=== PATIENT | male | born 1955 | race American Indian/Alaskan Native ===

== ENCOUNTER 2021-11-23 05:34 | Day surgery (SDC) | payer MEDICARE ==
[2021-11-21 13:02] LABS: Hematocrit 45.1 % (35.5-45.6); Mean Corpuscular HGB Conc 33 % (32-34); Mean Corpuscular Volume 105 fl (84-94); Platelet Count 229 K/mm3 (140-440); Red Blood Count 4.31 M/mm3 (3.65-5.03); Red Cell Distribution Width 13.4 % (13.2-15.2)
[2021-11-21 13:29] LABS: Alanine Aminotransferase 19 units/L (7-56); Albumin 4.5 g/dL (3.9-5); Blood Urea Nitrogen 9 mg/dL (9-20); Calcium 9.5 mg/dL (8.4-10.2); Hemolysis Index 3
[2021-11-21 13:42] LABS: BUN/Creatinine Ratio 13
[2021-11-23] MEDS ORDERED: MIDAZOLAM 2 MG/2 ML INJ IV SCH (06:00)
[2021-11-23] MEDS ORDERED: ACETAMINOPHEN 500 MG TAB PO SCH (06:00)
[2021-11-23] MEDS ORDERED: LACTATED RINGERS 1,000 ML IV SCH (06:00)
[2021-11-23] MEDS ORDERED: ceFAZolin/STERILE WATER 2 GM/20 ML SYRINGE IV NR (06:30)
--- NOTE | 2021-11-23 06:44 | Anesthesia Consultation ---
Anesthesia Consult and Med Hx Date of service: 11/23/21 - Airway Anesthetic Teeth Evaluation: Poor ROM Head & Neck: Adequate Mental/Hyoid Distance: Adequate Mallampati Class: Class II Intubation Access Assessment: Good - Pulmonary Exam CTA: Yes - Cardiac Exam Cardiac Exam: RRR - Pre-Operative Health Status ASA Pre-Surgery Classification: ASA2 Proposed Anesthetic Plan: General - Pulmonary Hx Smoking: Yes (1 PPD X 40 YRS) Hx Sleep Apnea: No (DIMA PRE SCREEN HIGH RISK) - Cardiovascular System Hx Hypertension: Yes (X 20 YRS) - Central Nervous System Hx Psychiatric Problems: No - Hematic Hx Anemia: No - Other Systems Hx Cancer: No
[2021-11-23] MEDS ORDERED: ceFAZolin/Water 2 GM/20 ML 2 GM/20 ML SYRINGE IV ONE (06:45)
--- NOTE | 2021-11-23 06:45 | Anesthesia Day of Surgery ---
Anesthesia Day of Surgery - Day of Surgery Patient Examined: Yes Patient H&P Reviewed: Yes Patient is NPO: Yes
[2021-11-23] MEDS ORDERED: fentaNYL 100 MCG/2 ML INJ ONE (06:54)
[2021-11-23] MEDS ORDERED: propofoL 200 MG/20 ML VIAL IV ONE (06:55)
[2021-11-23] MEDS ORDERED: SODIUM CHLORIDE 0.9% IRR 1,500 ML BOTTLE IR ONE (07:35)
[2021-11-23] MEDS ORDERED: ONDANSETRON 4 MG/2 ML INJ ONE (07:47)
[2021-11-23] MEDS ORDERED: HYDROcodone/ACETAMINOPHEN 5-325 MG TAB PO PRN (08:00)
[2021-11-23] MEDS ORDERED: HYDROmorphone 1 MG/1 ML INJ IV PRN (08:00)
--- NOTE | 2021-11-23 08:17 | Short Stay Summary ---
Short Stay Documentation Date of service: 11/23/21 - History H&P: obtained from office - Allergies and Medications Current Medications: Allergies No Known Allergies Allergy (Verified 11/17/21 16:56) Home Medications Medication Instructions Recorded Confirmed Last Taken Type amLODIPine [Norvasc] 10 mg PO DAILY 11/17/21 11/17/21 Unknown History lisinopriL [Zestril TAB] 40 mg PO QDAY 11/17/21 11/17/21 Unknown History Colchicine 0.6 mg PO DAILY PRN 11/21/21 11/21/21 Unknown History Indomethacin 50 mg PO Q8H PRN 11/21/21 11/21/21 Unknown History Triamterene/Hydrochlorothiazid 1 each PO DAILY 11/21/21 11/21/21 Unknown History [Triamterene-Hctz 75-50 mg Tab] lisinopriL [Zestril TAB] 40 mg PO QDAY 11/21/21 11/21/21 Unknown History Active Medications Acetaminophen (Acetaminophen 500 Mg Tab) 1,000 mg PO PREOP FUAD Stop: 11/23/21 19:00 Hydrocodone Bitart/Acetaminophen (Hydrocodone/Acetaminophen 5-325 Mg Tab) 2 each PO ONCE PRN PRN Reason: Pain, Moderate (4-6) Stop: 11/23/21 18:00 Hydromorphone HCl (Hydromorphone 1 Mg/1 Ml Inj) 0.5 mg IV Q10MIN PRN PRN Reason: Pain , Severe (7-10) Stop: 11/23/21 18:00 Lactated Ringer's (Lactated Ringers) 1,000 mls @ 100 mls/hr IV DIRECT FUAD Stop: 11/23/21 23:59 Midazolam HCl (Midazolam 2 Mg/2 Ml Inj) 2 mg IV PREOP FUAD Stop: 11/23/21 19:00 - Brief post op/procedure progress note Date of procedure: 11/23/21 Pre-op diagnosis: bilat hydroceles Post-op diagnosis: other (redundant scrotal skin) Procedure: bilat hydrocelectomy, scrotoplasty with drain Anesthesia: [facility] Surgeon: DAVID MOSS Pathology: list Specimen disposition: to lab (sac, scrotal skin) Condition: stable - Hospital course Hospital course: juli on chart - Disposition Condition at discharge: Stable Disposition: 01 HOME / SELF CARE / HOMELESS Short Stay Discharge Plan Follow up with: OBI MUHAMMAD [Other] - 7 Days
--- NOTE | 2021-11-23 09:14 | Operative Report ---
DATE OF SURGERY: 11/23/2021 PREOPERATIVE DIAGNOSIS: Bilateral hydroceles. POSTOPERATIVE DIAGNOSIS: Bilateral hydroceles. SECONDARY DIAGNOSIS: Redundant scrotal skin. PROCEDURE: Bilateral hydrocelectomy, scrotoplasty, Conrad drain placement. SURGEON: Jl Willis MD ANESTHESIA: General. ESTIMATED BLOOD LOSS: Minimal. FLUIDS: Crystalloid. COMPLICATIONS: No complications. INDICATIONS: This 66-year-old gentleman seen in the office with bilateral scrotal mass. Exam was consistent with softball sized mass. Ultrasound revealed bilateral hydroceles. Risks, benefits, complications were explained. The patient agreed to proceed with surgical intervention. DESCRIPTION OF PROCEDURE: The patient was taken to the operative suite, placed in a supine position. After adequate general anesthesia, he was prepped and draped in a sterile fashion. The left hydrocele was a little larger than the right, I took a wedge excision of this redundant skin, sent for routine pathologic evaluation. Incision was made in the left hydrocele sac. Serosanguineous fluid was evacuated. Sac was excised and sent for routine pathologic evaluation. Normal testicle could be appreciated. A whipstitch using 2-0 chromic in a running fashion was performed on the remnant sac. A similar procedure was performed on the right, again serosanguineous fluid. Normal appearing testicle. The dartos layer was closed in a running fashion using 2-0 chromic. A 1/2 inch Conrad drain was brought out was placed on each side. Skin was closed with a 2-0 chromic in an interrupted fashion. Scrotal support was placed. The patient tolerated the procedure well and was extubated and taken to recovery room and go home on [place] and followup in the office. TID: [id number] RECEIPT: [id number] [facility]
[2021-11-23 09:25] VITALS: BP 159/71
--- NOTE | 2021-11-23 14:24 | Post Anesthesia Evaluation ---
- Post Anesthesia Evaluation Patient Participated: Yes Airway Patent: Yes Stable Respiratory Function: Yes Nausea/Vomiting: No Temp > 96.8F: Yes Pain Manageable: Yes Adequeate Hydration: Yes Anesthesia Complications: No
== END 2021-11-23 09:35 | disposition home or self-care (01) ==
LOC: OR 05:34 → EDSEX 08:00 → OR 09:35
PROVIDERS: ATTEND Urology
DX: N43.3 Hydrocele, unspecified (principal); N50.89 Other specified disorders of the male genital organs; Z20.822 Contact with and (suspected) exposure to COVID-19; I10 Essential (primary) hypertension; F17.210 Nicotine dependence, cigarettes, uncomplicated; Z79.899 Other long term (current) drug therapy; Z98.890 Other specified postprocedural states
CPT/HCPCS: 36415; 55041; 55175; 80053; 85027; 88302; 88305; J0690; J1170; J2250; J2405; J2704; J3010; J7120; U0003